=== PATIENT | female | born 2000 | race African-American/Black ===

== ENCOUNTER 2021-01-20 13:32 | Emergency (ER) | payer OTHER ==
[2021-01-20 13:40] VITALS: BP 107/59; PULSE 110; TEMP 98.1; BMI 23.1
[2021-01-20] MEDS ORDERED: NAPROXEN 500 MG TABLET PO ONE (14:11)
[2021-01-20] MEDS ORDERED: NAPROXEN 500 MG TABLET ONE (14:18)
[2021-01-20 14:47] LABS: BASO % 0.6 % (0-2.0); EOS % 0.9 % (0-4.5); HEMATOCRIT 39.4 % (32.4-45.2); HEMOGLOBIN 13.1 GM/dL (10.7-15.3); LYMPH % 34.5 % (8-40); MCH 30.9 pg (25.7-33.7); MCHC 33.3 g/dl (32.0-36.0); MEAN CELL VOLUME 92.8 fl (80-96); MEAN PLT VOLUME 8.7 fl (7.5-11.1); MONO % 7.1 % (3.8-10.2); NEUT % 56.9 % (42.8-82.8); PLATELET COUNT 210 10^3/uL (134-434); RBC 4.25 M/mm3 (3.60-5.2); WHITE BLOOD COUNT 4.2 K/mm3 (4.0-10.0)
[2021-01-20 14:49] LABS: EPI CELLS 25 /uL (0-25.1); HYALINE CASTS 5 /uL (0-3.1); PH,URINE 5.5 (5.0-8.0); URINE APPEARANCE CLEAR; URINE BACTERIA 1142 /uL (0-1359); URINE BILIRUBIN NEGATIVE (NEGATIVE); URINE COLOR YELLOW; URINE GLUCOSE (UA) NEGATIVE (NEGATIVE); URINE KETONE TRACE (NEGATIVE); URINE LEUK ESTERASE TRACE (NEGATIVE); URINE NITRITE NEGATIVE (NEGATIVE); URINE PROTEIN TRACE (NEGATIVE); URINE RBC 8 /uL (0-23.9); URINE WBC 49 /uL (0-25.8)
[2021-01-20 14:50] LABS: HCG,QUALITATIVE URINE Negative
[2021-01-20 15:07] LABS: CHLORIDE 105 mmol/L (98-107); SODIUM 139 mmol/L (136-145)
[2021-01-20 15:09] LABS: ANION GAP 7 MMOL/L (8-16); BLOOD UREA NITROGEN 17.7 mg/dL (7-18); CALCIUM 9.2 mg/dL (8.5-10.1); CO2 26 mmol/L (21-32); GLUCOSE,RANDOM 89 mg/dL (74-106)
[2021-01-20 15:10] LABS: ALBUMIN 3.9 g/dl (3.4-5.0)
[2021-01-20 15:12] LABS: SGOT/AST 22 U/L (15-37); SGPT/ALT 26 U/L (13-61)
[2021-01-20 15:14] LABS: BILIRUBIN,TOTAL 0.8 mg/dL (0.2-1); TOT PROT 7.8 g/dl (6.4-8.2)
[2021-01-20 15:15] LABS: ALK PHOS 62 U/L (45-117)
== END 2021-01-20 15:40 | disposition home or self-care (01) ==
LOC: JER 13:32
DX: M94.0 Chondrocostal junction syndrome [Tietze] (principal)
CPT/HCPCS: 36415; 71046-TC-FY; 80053; 81003; 82550; 82553; 84484; 84703; 85025; 93005; 93010; 99285-25